=== PATIENT | female | born 1945 | race Caucasian/White ===

== ENCOUNTER 2017-09-08 18:06 | Observation (INO) | payer BC, OTHER ==
[~2017-09-08 18:06] MED LIST: CADU5TAB2 PO; FLUO20TA20 PO; MIAC200S; OMEP20TA PO; [UNRECOGNIZED DRUG - OTHER] PO
[2017-09-08] MEDS ORDERED: IOHEXOL 350 MG/ML 10 ML VIAL (for RAD DIAG) IVCONTRAST ONE (18:07)
[2017-09-08 18:13] VITALS: BP 154/96; PULSE 124; RESP 20; TEMP 98.1; O2SAT 94
[2017-09-08] MEDS ORDERED: FLUO-1 PO (18:24)
[2017-09-08] MEDS ORDERED: CHOLESTEROL PILL (18:24)
[2017-09-08] MEDS ORDERED: BLOOD PRESSURE PILL (18:24)
[2017-09-08 18:28] VITALS: BP 126/73; PULSE 86; RESP 19; O2SAT 99
[2017-09-08] MEDS ORDERED: KETOROLAC TROMETHAMINE 30 MG/ML (IVP) VIAL IV PUSH ONE (18:30)
[2017-09-08] MEDS ORDERED: SODIUM CHLORIDE 0.9% FLUSH 10 ML FLUSH IVF PRN (18:30)
[2017-09-08] MEDS ORDERED: ASPIRIN 81 MG CHEW TAB PO ONE (18:30)
--- NOTE | 2017-09-08 18:31 | PD ---
HPI Chief Complaint: Chest Pain Time Seen by Provider: 18:17 Travel History International Travel<30 days: No Contact w/Intl Traveler<30days: No Traveled to known affect area: No History of Present Illness HPI 72-year-old female presents to the emergency department for evaluation of right- sided chest pain that occurred just prior to arrival. Patient states she was walking around when she started with a sharp, intermittent right-sided chest pain that is worse with deep breathing, movement. Patient states this sharp and stabbing in nature without radiation. She denies any heavy lifting or heavy exercise. She denies any history of similar pain in the past. No fevers or chills. She states she had an associated cough with it. She denies any left -sided chest pain. No abdominal pain. No alleviating factors. Moderate severity. PFSH Past Medical History Arthritis: No Asthma: No Autoimmune Disease: No Blood Disorders: No Anxiety: Yes Depression: Yes Heart Rhythm Problems: No Cancer: No Cardiovascular Problems: Yes High Cholesterol: No Chemotherapy: No Chest Pain: No Congestive Heart Failure: No COPD: No Cerebrovascular Accident: No Diabetes: No Endocrine: No Gastrointestinal Disorders: Yes (HEMORRHOIDECTOMY THIS LAST WEEK) GERD: Yes Glaucoma: No Genitourinary: No Headaches: No Hepatitis: No Hiatal Hernia: Yes Hypertension: Yes Immune Disorder: No Kidney Stones: No Musculoskeletal: Yes Neurologic: Yes Psychiatric: Yes Reproductive: No Respiratory: No Myocardial Infarction: No Radiation Therapy: No Renal Failure: No Seizures: No Sickle Cell Disease: No Sleep Apnea: No Thyroid Disease: No Ulcer: Yes Tetanus Vaccination: Unknown Influenza Vaccination: No ?: Not Menopausal: Yes Past Surgical History Abdominal Surgery: Yes (APPENDECTOMY) AICD: No Cardiac Surgery: No Ear Surgery: No Endocrine Surgery: No Eye Surgery: No Genitourinary Surgery: No Gynecologic Surgery: Yes (TUBAL LIGATION, HYSTEROSCOPY) Oral Surgery: No Pacemaker: No Thoracic Surgery: No Other Surgery: Yes Social History Alcohol Use: Yes (FEW GLASSES WINE EVERY MONTH) Tobacco Use: No Substance Use: No Allergies-Medications (Allergen,Severity, Reaction): Coded Allergies: hydromorphone (Unverified Allergy, Mild, COMATOSE, 09/08/17) Reported Meds & Prescriptions Reported Meds & Active Scripts Active Reported [Cholesterol Pill] [Blood Pressure Pill] Prozac (Fluoxetine HCl) 10 Mg Cap 10 Mg PO DAILY Review of Systems Except as stated in HPI: all other systems reviewed are Neg Physical Exam Narrative GENERAL: Well-nourished, well-developed female patient, afebrile. SKIN: Focused skin assessment warm/dry. HEAD: Normocephalic. Atraumatic. EYES: No scleral icterus. No injection or drainage. NECK: Supple, trachea midline. No JVD or lymphadenopathy. CARDIOVASCULAR: Regular rate and rhythm without murmurs, gallops, or rubs. Bilateral radial and pedal pulses are 2+. RESPIRATORY: Breath sounds equal bilaterally. No accessory muscle use. Lungs sounds are clear to auscultation. GASTROINTESTINAL: Abdomen soft, non-tender, nondistended. No abdominal pain to palpation. MUSCULOSKELETAL: No cyanosis, or edema. Right lower chest pain is reproducible with palpation. BACK: Nontender without obvious deformity. No CVA tenderness. Data Data Last Documented VS Vital Signs Date Time Temp Pulse Resp B/P (MAP) Pulse Ox O2 Delivery O2 Flow Rate FiO2 09/08/17 19:18 96 09/08/17 19:18 16 123/81 (95) 99 09/08/17 18:34 Nasal Cannula 2.00 09/08/17 18:13 98.1 Orders Orders Electrocardiogram (09/08/17 18:26) Ckmb (Isoenzyme) Profile (09/08/17 18:26) Complete Blood Count With Diff (09/08/17 18:26) D-Dimer (09/08/17 18:26) Magnesium (Mg) (09/08/17 18:26) Prothrombin Time / Inr (Pt) (09/08/17 18:26) Act Partial Throm Time (Ptt) (09/08/17 18:26) Troponin I (09/08/17 18:26) Chest, Single Ap (09/08/17 18:26) Ecg Monitoring (09/08/17 18:26) Bilateral Bp Monitoring (09/08/17 18:26) Iv Access Insert/Monitor (09/08/17 18:26) Oximetry (09/08/17 18:26) Oxygen Administration (09/08/17 18:26) Aspirin Chew (Aspirin Chew) (09/08/17 18:30) Sodium Chloride 0.9% Flush (Ns Flush) (09/08/17 18:30) Ketorolac Inj (Toradol Inj) (09/08/17 18:30) Comprehensive Metabolic Panel (09/08/17 18:35) Lipase (09/08/17 18:35) CKMB (09/08/17 18:35) CKMB% (09/08/17 18:35) Ct Pulmonary Angiogram (09/08/17 ) Iohexol 350 Inj (Omnipaque 350 Inj) (09/08/17 18:07) Admit Order (Ed Use Only) (09/08/17 21:12) Labs Laboratory Tests Test 09/08/17 18:35 White Blood Count 6.9 TH/MM3 Red Blood Count 4.59 MIL/MM3 Hemoglobin 14.8 GM/DL Hematocrit 43.0 % Mean Corpuscular Volume 93.7 FL Mean Corpuscular Hemoglobin 32.2 PG Mean Corpuscular Hemoglobin Concent 34.4 % Red Cell Distribution Width 13.4 % Platelet Count 273 TH/MM3 Mean Platelet Volume 7.3 FL Neutrophils (%) (Auto) 60.6 % Lymphocytes (%) (Auto) 25.5 % Monocytes (%) (Auto) 10.8 % Eosinophils (%) (Auto) 2.6 % Basophils (%) (Auto) 0.5 % Neutrophils # (Auto) 4.2 TH/MM3 Lymphocytes # (Auto) 1.8 TH/MM3 Monocytes # (Auto) 0.7 TH/MM3 Eosinophils # (Auto) 0.2 TH/MM3 Basophils # (Auto) 0.0 TH/MM3 CBC Comment DIFF FINAL Differential Comment Prothrombin Time 10.0 SEC Prothromb Time International Ratio 1.0 RATIO Activated Partial Thromboplast Time 24.4 SEC D-Dimer Quantitative (PE/DVT) 1.37 MG/L FEU Blood Urea Nitrogen 21 MG/DL Creatinine 0.95 MG/DL Random Glucose 100 MG/DL Total Protein 7.7 GM/DL Albumin 3.9 GM/DL Calcium Level 8.9 MG/DL Magnesium Level 2.1 MG/DL Alkaline Phosphatase 118 U/L Aspartate Amino Transf (AST/SGOT) 26 U/L Alanine Aminotransferase (ALT/SGPT) 29 U/L Total Bilirubin 0.3 MG/DL Sodium Level 139 MEQ/L Potassium Level 4.3 MEQ/L Chloride Level 104 MEQ/L Carbon Dioxide Level 28.1 MEQ/L Anion Gap 7 MEQ/L Estimat Glomerular Filtration Rate 58 ML/MIN Total Creatine Kinase 101 U/L Creatine Kinase MB 1.5 NG/ML Troponin I LESS THAN 0.02 NG/ML Lipase 66 U/L MDM Medical Decision Making Medical Screen Exam Complete: Yes Emergency Medical Condition: Yes Medical Record Reviewed: Yes Interpretation(s) Last Impressions Chest X-Ray 09/08/17 1826 Signed Impressions: Service Date/Time: Friday, September 08, 2017 18:53 - CONCLUSION: The lungs are clear. Ankit Alicia MD CT Angiography 09/08/17 0000 Signed Impressions: Service Date/Time: Friday, September 08, 2017 19:59 - CONCLUSION: 1. The study is negative for pulmonary embolism. 2. Bilateral symmetric areas of scarring or atelectasis in the lower lungs. 3. Hiatus hernia. Ankit Alicia MD Differential Diagnosis Musculoskeletal strain versus pneumothorax versus pneumonia versus PE versus ACS Narrative Course 72-year-old female presents to the emergency department for evaluation of right- sided chest pain that started just prior to arrival. EKG shows sinus rhythm, heart rate 91, no acute ST changes. CBC, CMP, lipase, CK, troponin, magnesium, PTT, PT/INR, d-dimer are ordered and pending. Chest x-ray is ordered and pending. Patient is given aspirin 162 mg by mouth and Toradol 30 mg IV. CBC shows no acute abnormality. CMP shows no acute abnormality. Lipase is 66. CK is 101. Troponin is less than 0.02. Magnesium is 2.1. Coags are unremarkable. D-dimer is 1.37. Chest x-ray shows the lungs are clear. CT pulmonary angiogram is ordered and pending which shows no evidence of PE. I spoke with attending physician, Dr. Draper, who also examined patient. We were going to discharge the patient home as this appears to be musculoskeletal, the patient requests to be admitted for further evaluation convinced that she is having a heart attack. Patient does have risk factors and will be admitted to the chest pain center for further evaluation. My attending physician agrees. Diagnosis Primary Impression: Chest pain Qualified Codes: R07.9 - Chest pain, unspecified Admitting Information Admitting Physician Requests: Observation Sara Andrade Sep 08, 2017 18:31
[2017-09-08 18:34] VITALS: BP_SYST 126; BP_SYST 154; BP_DIAS 73; BP_DIAS 96; O2SAT 99
[2017-09-08 18:57] LABS: AUTOMATED NEUTROPHIL # 4.2 TH/MM3 (1.8-7.7); BASOPHIL % 0.5 % (0.0-2.0); EOSINOPHIL # 0.2 TH/MM3 (0-0.4); EOSINOPHIL % 2.6 % (0.0-4.0); HEMOGLOBIN 14.8 GM/DL (11.6-15.3); LYMPH % 25.5 % (9.0-44.0); LYMPHOCYTE # 1.8 TH/MM3 (1.0-4.8); MEAN CELL VOLUME 93.7 FL (80.0-100.0); MEAN CORPUSCULAR HEMOGLOBIN 32.2 PG (27.0-34.0); MEAN CORPUSCULAR HGB CONC 34.4 % (32.0-36.0); MEAN PLATELET VOLUME 7.3 FL (7.0-11.0); MONO % 10.8 % (0.0-8.0); MONOCYTE # 0.7 TH/MM3 (0-0.9); NEUT % 60.6 % (16.0-70.0); PLATELET COUNT 273 TH/MM3 (150-450); RED BLOOD COUNT 4.59 MIL/MM3 (4.00-5.30); RED CELL DISTRIBUTION WIDTH 13.4 % (11.6-17.2); WHITE BLOOD COUNT 6.9 TH/MM3 (4.0-11.0)
--- NOTE | 2017-09-08 19:14 | RADRPT ---
EXAM DATE/TIME: 09/08/2017 18:53 [facility] COMPARISON: No previous studies available for comparison. INDICATIONS : Patient complains of right sided chest pain. MEDICAL HISTORY : None. SURGICAL HISTORY : None. ENCOUNTER: Initial ACUITY: 1 day PAIN SCORE: 8/10 LOCATION: Right chest FINDINGS: A single view of the chest demonstrates the lungs to be symmetrically aerated without evidence of mas s, infiltrate or effusion. The cardiomediastinal contours are unremarkable. Osseous structures are intact. CONCLUSION: The lungs are clear. Ankit Alicia MD on September 08, 2017 at 19:12 Board Certified Radiologist. This report was verified electronically.
[2017-09-08 19:17] LABS: D-DIMER 1.37 MG/L FEU (0.00-0.50)
[2017-09-08 19:18] VITALS: BP 123/81; PULSE 79; RESP 16; O2SAT 99
[2017-09-08 19:20] LABS: ALKALINE PHOSPHATASE 118 U/L (45-117); TOTAL BILIRUBIN ADULT 0.3 MG/DL (0.2-1.0); TOTAL PROTEIN 7.7 GM/DL (6.4-8.2); TROPONIN I LESS THAN 0.02 NG/ML (0.02-0.05)
[2017-09-08 19:27] LABS: ALBUMIN 3.9 GM/DL (3.4-5.0); AST (GOT) 26 U/L (15-37); BICARBONATE 28.1 MEQ/L (21.0-32.0); BLOOD UREA NITROGEN 21 MG/DL (7-18); CALCIUM 8.9 MG/DL (8.5-10.1); CHLORIDE 104 MEQ/L (98-107); CREATININE 0.95 MG/DL (0.50-1.00); GLOMERULAR FILTRATION RATE 58 ML/MIN (>89); GLUCOSE,RANDOM 100 MG/DL (74-106); MAGNESIUM 2.1 MG/DL (1.5-2.5); SODIUM (NA) 139 MEQ/L (136-145)
[2017-09-08 19:30] LABS: ALT (GPT) 29 U/L (10-53)
--- NOTE | 2017-09-08 20:14 | RADRPT ---
EXAM DATE/TIME: 09/08/2017 19:59 [facility] COMPARISON: No previous studies available for comparison. INDICATIONS : Chest pain and short of breath. IV CONTRAST: 73 cc Omnipaque 350 (iohexol) IV RADIATION DOSE: 14.01 CTDIvol (mGy) MEDICAL HISTORY : Hypertension. SURGICAL HISTORY : Tubal ligation. ENCOUNTER: Initial ACUITY: 1 day PAIN SCALE: 9/10 LOCATION: chest TECHNIQUE: Volumetric scanning of the chest was performed using a pulmonary embolism protocol MIP images were re constructed. Using automated exposure control and adjustment of the mA and/or kV according to patien t size, radiation dose was kept as low as reasonably achievable to obtain optimal diagnostic quality images. DICOM format image data is available electronically for review and comparison. Follow-up recommendations for detected pulmonary nodules are based at a minimum on nodule size and pa tient risk factors according to Fleischner Society Guidelines. FINDINGS: PULMONARY ARTERIES: No filling defects are seen in the pulmonary arteries through the segmental level. LUNGS: In the posterior lower lungs bilaterally, there are thickened areas of opacity without air bronchogra ms having a configurations suggesting scarring or atelectasis. No infiltrates or nodules seen in the mid or upper lungs. PLEURAE: There is no pleural thickening or pleural effusion. MEDIASTINUM: There is good visualization of the great vessels of the middle mediastinum. No evidence of mediastin al or hilar adenopathy/mass post moderate size hiatus hernia measuring 4.6 cm.. CONCLUSION: 1. The study is negative for pulmonary embolism. 2. Bilateral symmetric areas of scarring or atelectasis in the lower lungs. 3. Hiatus hernia. Ankit Alicia MD on September 08, 2017 at 20:11 Board Certified Radiologist. This report was verified electronically.
[2017-09-08] MEDS ORDERED: SODIUM CHLORIDE 0.9% FLUSH 10 ML FLUSH IV FLUSH PRN (21:15)
--- NOTE | 2017-09-08 21:53 | PD ---
Physical Exam Date Seen by Provider: Sep 08, 2017 Time Seen by Provider: 20:50 Narrative GENERAL: Well-developed well-nourished female no acute distress no respiratory distress SKIN: Warm and dry. NECK: Supple, trachea midline. No JVD or lymphadenopathy. CARDIOVASCULAR: Regular rate and rhythm without murmurs, gallops, or rubs. Chest wall: Reproducible right anterior lower chest wall tenderness to palpation RESPIRATORY: Breath sounds equal bilaterally. No accessory muscle use. GASTROINTESTINAL: Abdomen soft, non-tender, nondistended. MUSCULOSKELETAL: No cyanosis, or edema. Data Data Last Documented VS Vital Signs Date Time Temp Pulse Resp B/P (MAP) Pulse Ox O2 Delivery O2 Flow Rate FiO2 09/08/17 19:18 96 09/08/17 19:18 16 123/81 (95) 99 09/08/17 18:34 Nasal Cannula 2.00 09/08/17 18:13 98.1 Orders Orders Electrocardiogram (09/08/17 18:26) Ckmb (Isoenzyme) Profile (09/08/17 18:26) Complete Blood Count With Diff (09/08/17 18:) D-Dimer (09/08/17 18:) Magnesium (Mg) (09/08/17 18:26) Prothrombin Time / Inr (Pt) (09/08/17 18:26) Act Partial Throm Time (Ptt) (09/08/17 18:26) Troponin I (09/08/17 18:26) Chest, Single Ap (09/08/17 18:26) Ecg Monitoring (09/08/17 18:26) Bilateral Bp Monitoring (09/08/17 18:26) Iv Access Insert/Monitor (09/08/17 18:) Oximetry (09/08/17 18:26) Oxygen Administration (09/08/17 18:26) Aspirin Chew (Aspirin Chew) (09/08/17 18:30) Sodium Chloride 0.9% Flush (Ns Flush) (09/08/17 18:30) Ketorolac Inj (Toradol Inj) (09/08/17 18:30) Comprehensive Metabolic Panel (09/08/17 18:35) Lipase (09/08/17 18:35) CKMB (09/08/17 18:35) CKMB% (09/08/17 18:35) Ct Pulmonary Angiogram (09/08/17 ) Iohexol 350 Inj (Omnipaque 350 Inj) (09/08/17 18:07) Admit Order (Ed Use Only) (09/08/17 21:12) Labs Laboratory Tests Test 09/08/17 18:35 White Blood Count 6.9 TH/MM3 Red Blood Count 4.59 MIL/MM3 Hemoglobin 14.8 GM/DL Hematocrit 43.0 % Mean Corpuscular Volume 93.7 FL Mean Corpuscular Hemoglobin 32.2 PG Mean Corpuscular Hemoglobin Concent 34.4 % Red Cell Distribution Width 13.4 % Platelet Count 273 TH/MM3 Mean Platelet Volume 7.3 FL Neutrophils (%) (Auto) 60.6 % Lymphocytes (%) (Auto) 25.5 % Monocytes (%) (Auto) 10.8 % Eosinophils (%) (Auto) 2.6 % Basophils (%) (Auto) 0.5 % Neutrophils # (Auto) 4.2 TH/MM3 Lymphocytes # (Auto) 1.8 TH/MM3 Monocytes # (Auto) 0.7 TH/MM3 Eosinophils # (Auto) 0.2 TH/MM3 Basophils # (Auto) 0.0 TH/MM3 CBC Comment DIFF FINAL Differential Comment Prothrombin Time 10.0 SEC Prothromb Time International Ratio 1.0 RATIO Activated Partial Thromboplast Time 24.4 SEC D-Dimer Quantitative (PE/DVT) 1.37 MG/L FEU Blood Urea Nitrogen 21 MG/DL Creatinine 0.95 MG/DL Random Glucose 100 MG/DL Total Protein 7.7 GM/DL Albumin 3.9 GM/DL Calcium Level 8.9 MG/DL Magnesium Level 2.1 MG/DL Alkaline Phosphatase 118 U/L Aspartate Amino Transf (AST/SGOT) 26 U/L Alanine Aminotransferase (ALT/SGPT) 29 U/L Total Bilirubin 0.3 MG/DL Sodium Level 139 MEQ/L Potassium Level 4.3 MEQ/L Chloride Level 104 MEQ/L Carbon Dioxide Level 28.1 MEQ/L Anion Gap 7 MEQ/L Estimat Glomerular Filtration Rate 58 ML/MIN Total Creatine Kinase 101 U/L Creatine Kinase MB 1.5 NG/ML Troponin I LESS THAN 0.02 NG/ML Lipase 66 U/L [facility] Medical Record Reviewed: Yes Supervised Visit with RYANN: Yes Differential Diagnosis Chest pain, atypical chest pain, ACS, NV, musculoskeletal pain, pleurisy, costochondritis, occult rib fracture, pneumonia, cholecystitis, PE Narrative Course Patient presents with complaint of 2 hours of intermittent stabbing right-sided chest pain and midsternal pain without associated shortness of breath sweats nausea vomiting near syncope syncope or referred neck jaw back shoulder arm pain. Patient denies abdominal pain. Patient has history of hypertension and dyslipidemia. Symptoms began while performing minimal exertion. Pain was present for seconds at a time and resolve spontaneously. No prior history of cardiac disease or cardiac evaluation. Patient was appropriately evaluated and assessed by nurse practitioner and I agree with assessment and plan. Patient underwent cardiac monitoring with continuous pulse oximetry IV access obtained specimens collections of resulting EKG was performed which revealed no acute injury pattern or ectopy advisor found to be grossly within normal range except for elevated d-dimer which was addressed with CT pulmonary angiogram which was negative for PE or acute process. Findings have been discussed in detail with the patient with spouse at bedside patient is concerned that she may have cardiac disease therefore with risk factor being female over the age of 50 with hypertension dyslipidemia and family history of heart disease although not premature onset patient will be admitted for observation to chest pain center per protocol. Physician Communication Physician Communication [facility] Diagnosis Primary Impression: Chest pain Qualified Codes: R07.9 - Chest pain, unspecified Admitting Information Admitting Physician Requests: Observation Christina Draper MD Sep 08, 2017 21:53
[2017-09-08 22:12] VITALS: BP 132/73; PULSE 84; RESP 15; TEMP 98; O2SAT 94
[2017-09-08 23:24] LABS: TROPONIN I LESS THAN 0.02 NG/ML (0.02-0.05)
[2017-09-09] VITALS (7 sets, daily range): BP systolic 97–125; BP diastolic 56–78; PULSE 74–82; RESP 15–18; TEMP 98–98.3; O2SAT 94–95
[2017-09-09 02:25] LABS: TROPONIN I LESS THAN 0.02 NG/ML (0.02-0.05)
--- NOTE | 2017-09-09 07:42 | HHI.HP ---
HPI Primary Care Physician Luke Renteria MD Chief Complaint Chest pain History of Present Illness 72 year old female with history of depression, hypertension, and hyperlipidemia presents to ER for further evaluation of chest pain. Onset yesterday afternoon. Location right inframammary area. Characterized as sharp. Hurts to take a deep breath. No radiation of pain. Duration constant, continues to report "mild soreness." Hurt to take a deep breath. No associated symptoms of nausea, vomiting, diaphoreses, or dyspnea. No precipitating. Relieving factors Toradol given in ER helped reduce the severity of discomfort. Review of Systems General: No fatigue,weakness, fever, chills, recent illness, or change in appetite. Has been in her general state of health. HEENT: No DUTTON, no vision changes, no nasal congestion or drainage, no dysphasia CV: As stated above. Continues to have right-sided chest pain, made worse with palpation. No palpitations, intermittent leg pain, dizziness RESP: No SOB, cough, wheeze, recent URI GI: No nausea, vomiting, bowel changes, diarrhea, constipation, pain, distention , melena, blood in the stool. No change in appetite, no unintentional weight gain or weight loss : No dysuria, urgency, frequency EXT: No lower leg edema, no paraesthesias MS: No discomfort, recent injury, trauma, or change in ROM NEURO: No difficulty with balance, LOC, motor/sensory deficits PSYCH: History of depression, reporting controlled prozac daily. SKIN: No rashes, no concerning lesions Past Family Social History Allergies: Coded Allergies: hydromorphone (Unverified Allergy, Mild, COMATOSE, 09/08/17) Past Medical History Hyperlipidemia, hypertension, depression Reported Medications Reported Meds & Active Scripts Active Reported [Cholesterol Pill] [Blood Pressure Pill] Prozac (Fluoxetine HCl) 10 Mg Cap 10 Mg PO DAILY Active Ordered Medications Current Medications Medications (Trade) Dose Ordered Sig/Kay Route Start Time Stop Time Status Last Admin (NS Flush) 2 ml UNSCH PRN IVF 09/08/17 18:30 (NS Flush) 2 ml UNSCH PRN IV FLUSH 09/08/17 21:15 Social History Known hypertension and hyperlipidemia. No known coronary artery disease or diabetes. Lifelong nonsmoker. Denies any alcohol. Endorses an active lifestyle. . Retired. Past cardiac testing No recent cardiac testing. Physical Exam Vital Signs Vital Signs Date Time Temp Pulse Resp B/P (MAP) Pulse Ox O2 Delivery O2 Flow Rate FiO2 09/09/17 04:35 98.0 78 15 106/67 (80) 95 09/09/17 04:06 77 09/09/17 01:20 Nasal Cannula 2.00 09/09/17 00:54 81 09/09/17 00:38 98.3 82 16 97/56 (70) 94 09/08/17 22:12 98.0 84 15 132/73 (92) 94 09/08/17 22:00 09/08/17 19:18 96 09/08/17 19:18 79 16 123/81 (95) 99 09/08/17 18:34 154/96 (115) 126/73 (90) 09/08/17 18:34 99 09/08/17 18:34 Nasal Cannula 2.00 09/08/17 18:28 86 19 126/73 (90) 99 Nasal Cannula 2.00 09/08/17 18:13 98.1 124 20 154/96 (115) 94 Physical Exam GENERAL: Alert WN, WD, NAD, pleasant, female HEAD: NC, AT EYES: Sclera clear, conjunctiva without injection ENT: Mucous membranes pink and moist NECK: Supple, no masses, trachea midline CV: RRR, without murmur, rub, gallop, no JVD, S1-S2 no S3-S4. Right sided chest pain easily reproduced with light palpation. RESP: Clear lungs throughout bilateral, no crackles, wheeze, rhonchi, symmetrical chest rise, nonlabored, able to speak in full sentences ABD: Soft, NT, ND, no masses, positive bowel tones EXT: Pulses +24, no dependent edema MS: Normal tone 4 extremities, nontender, no obvious deformities, full range of motion NEURO: CN II through CN XII grossly intact, motor strength 5/5, gait WNL PSYCH: A+O 3, pleasant affect, appropriate speech, mood, insight and judgment SKIN: Normal turgor, normal texture, no lesions, no rashes Laboratory Laboratory Tests Test 09/08/17 18:35 09/08/17 22:50 09/09/17 01:50 White Blood Count 6.9 Red Blood Count 4.59 Hemoglobin 14.8 Hematocrit 43.0 Mean Corpuscular Volume 93.7 Mean Corpuscular Hemoglobin 32.2 Mean Corpuscular Hemoglobin Concent 34.4 Red Cell Distribution Width 13.4 Platelet Count 273 Mean Platelet Volume 7.3 Neutrophils (%) (Auto) 60.6 Lymphocytes (%) (Auto) 25.5 Monocytes (%) (Auto) 10.8 Eosinophils (%) (Auto) 2.6 Basophils (%) (Auto) 0.5 Neutrophils # (Auto) 4.2 Lymphocytes # (Auto) 1.8 Monocytes # (Auto) 0.7 Eosinophils # (Auto) 0.2 Basophils # (Auto) 0.0 CBC Comment DIFF FINAL Differential Comment Prothrombin Time 10.0 Prothromb Time International Ratio 1.0 Activated Partial Thromboplast Time 24.4 D-Dimer Quantitative (PE/DVT) 1.37 Blood Urea Nitrogen 21 Creatinine 0.95 Random Glucose 100 Total Protein 7.7 Albumin 3.9 Calcium Level 8.9 Magnesium Level 2.1 Alkaline Phosphatase 118 Aspartate Amino Transf (AST/SGOT) 26 Alanine Aminotransferase (ALT/SGPT) 29 Total Bilirubin 0.3 Sodium Level 139 Potassium Level 4.3 Chloride Level 104 Carbon Dioxide Level 28.1 Anion Gap 7 Estimat Glomerular Filtration Rate 58 Total Creatine Kinase 101 71 66 Creatine Kinase MB 1.5 Troponin I LESS THAN 0.02 LESS THAN 0.02 LESS THAN 0.02 Lipase 66 Result Diagram: 09/08/17 1835 09/08/17 1835 Imaging Last 48 hours Impressions Chest X-Ray 09/08/17 1826 Signed Impressions: Service Date/Time: Friday, September 08, 2017 18:53 - CONCLUSION: The lungs are clear. Ankit Alicia MD CT Angiography 09/08/17 0000 Signed Impressions: Service Date/Time: Friday, September 08, 2017 19:59 - CONCLUSION: 1. The study is negative for pulmonary embolism. 2. Bilateral symmetric areas of scarring or atelectasis in the lower lungs. 3. Hiatus hernia. Ankit Alicia MD Course EKG Sinus rhythm, normal axis, no ST segment changes Caprini VTE Risk Assessment Caprini VTE Risk Assessment: Mod/High Risk (score >= 2) Caprini Risk Assessment Model Point Value = 1 Point Value = 2 Point Value = 3 Point Value = 5 Age 41-60 Minor surgery BMI > 25 kg/m2 Swollen legs Varicose veins or History of unexplained or recurrent spontaneous Oral contraceptives or hormone replacement Sepsis (< 1 month) Serious lung disease, including pneumonia (< 1 month) Abnormal pulmonary function Acute myocardial infarction Congestive heart failure (< 1 month) History of inflammatory bowel disease Medical patient at bed rest Age 61-74 Arthroscopic surgery Major open surgery (> 45 min) Laparoscopic surgery (> 45 min) Malignancy Confined to bed (> 72 hours) Immobilizing plaster cast Central venous access Age >= 75 History of VTE Family history of VTE Factor V Leiden Prothrombin [id number] Lupus anticoagulant Anticardiolipin antibodies Elevated serum homocysteine Heparin-induced thrombocytopenia Other congenital or acquired thrombophilia Stroke (< 1 month) Elective arthroplasty Hip, pelvis, or leg fracture Acute spinal cord injury (< 1 month) Prophylaxis Regimen Total Risk Factor Score Risk Level Prophylaxis Regimen 0-1 Low Early ambulation 2 Moderate Order ONE of the following: *Sequential Compression Device (SCD) *Heparin 5000 units SQ BID 3-4 Higher Order ONE of the following medications: *Heparin 5000 units SQ TID *Enoxaparin/Lovenox 40 mg SQ daily (WT < 150 kg, CrCl > 30 mL/min) *Enoxaparin/Lovenox 30 mg SQ daily (WT < 150 kg, CrCl > 10-29 mL/min) *Enoxaparin/Lovenox 30 mg SQ BID (WT < 150 kg, CrCl > 30 mL/min) AND/OR *Sequential Compression Device (SCD) 5 or more Highest Order ONE of the following medications: *Heparin 5000 units SQ TID (Preferred with Epidurals) *Enoxaparin/Lovenox 40 mg SQ daily (WT < 150 kg, CrCl > 30 mL/min) *Enoxaparin/Lovenox 30 mg SQ daily (WT < 150 kg, CrCl > 10-29 mL/min) *Enoxaparin/Lovenox 30 mg SQ BID (WT < 150 kg, CrCl > 30 mL/min) AND *Sequential Compression Device (SCD) Assessment and Plan Assessment and Plan #1 Atypical chest pain-admitted chest pain center. Ruled out with 3 sets of EKGs, cardiac enzymes, and monitored to monitor overnight. Seen and evaluated by Dr. Gorge Serna. Proceed with exercise stress test this a.m. If unremarkable plans to discharge home with follow-up with PCP. Discomfort most likely musculoskeletal in nature. Toradol 30 mg tab 1 dose IV. Patient agreeable to plan of care. Rowena Doyle Sep 09, 2017 07:42
[2017-09-09] MEDS ORDERED: NITROGLYCERIN 0.4 MG SL 25 TABS/BTL SL PRN (07:45)
[2017-09-09] MEDS ORDERED: ONDANSETRON HCL 4 MG/2 ML VIAL IV PUSH PRN (07:45)
[2017-09-09] MEDS ORDERED: ACETAMINOPHEN 500 MG CPLT PO PRN (07:45)
[2017-09-09] MEDS ORDERED: KETOROLAC TROMETHAMINE 30 MG/ML (IVP) VIAL IV PUSH ONE (08:45)
[2017-09-09] MEDS ORDERED: ASPIRIN 325 MG TAB PO SCH (09:00)
[2017-09-09] MEDS ORDERED: FLUoxetine HCL 10 MG CAP PO SCH (09:00)
--- NOTE | 2017-09-09 11:45 | HHI.DCPOC ---
Discharge Care Plan Diagnosis: (1) Musculoskeletal chest pain Goals to Promote Your Health * To prevent worsening of your condition and complications * To maintain your health at the optimal level Directions to Meet Your Goals Take your medications as prescribed Follow your dietary instruction Follow activity as directed Keep your appointments as scheduled Take your immunizations and boosters as scheduled If your symptoms worsen call your PCP, if no PCP go to Urgent Care Center or Emergency Room Smoking is Dangerous to Your Health. Avoid second hand smoke Call the 24-hour hour crisis hotline for domestic abuse at Rowena Doyle Sep 09, 2017 11:45
--- NOTE | 2017-09-10 08:46 | EKG ---
Date Performed: 09/09/2017 Time Performed: 02:39:44 PTAGE: 72 years EKG: Sinus rhythm NORMAL ECG PREVIOUS TRACING : 09/08/2017 22.19 Since previous tracing, no significant change noted DOCTOR: Gorge Serna Interpretating Date/Time 09/10/2017 08:44:40
--- NOTE | 2017-09-10 08:47 | EKG ---
Date Performed: 09/08/2017 Time Performed: 22:19:36 PTAGE: 72 years EKG: Sinus rhythm BORDERLINE ECG PREVIOUS TRACING : 09/08/2017 18.23 Since previous tracing, no significant change noted DOCTOR: Gorge Serna Interpretating Date/Time 09/10/2017 08:45:49
--- NOTE | 2017-09-10 08:48 | EKG ---
Date Performed: 09/08/2017 Time Performed: 18:23:12 PTAGE: 72 years EKG: Sinus rhythm NORMAL ECG PREVIOUS TRACING : 08/24/2008 12.38 Since previous tracing, no significant change noted DOCTOR: Gorge Serna Interpretating Date/Time 09/10/2017 08:46:50
--- NOTE | 2017-09-10 08:57 | TR ---
Date Performed: 09/09/2017 Time Performed: 10:35:55 DOCTOR: Gorge Serna DRUG LIST: CLINICAL HISTORY: REASON FOR TEST: REASON FOR ENDING: OBSERVATION: CONCLUSION: Zacarias protocol completed. Stopped sec to leg fatigue and exceeding target heart rate . Target HR Achieved=99.0% Maximum FO=457/80 Total Exercise Time=3:01 Maximum CS=951. No reprod chest discomfort. No ectopy. No st t segment changes, nondiagnostic. Normal bp response. Exericse toleranc e fair. Recovery quick and unremarkable. COMMENTS: Patient exercised using the Zacarias protocol. No electrocardiographic changes were seen to suggest ischemia. Hemodynamic response to exercise was normal. No significant arrhythmia was prese nt.
== END 2017-09-09 13:02 | disposition home or self-care (01) ==
LOC: NEPC 18:06 → NEDA 21:14 → NEPFCDU 21:53
PROVIDERS: ADMIT Internal Medicine Cardiovascular Disease; ATTEND Internal Medicine Cardiovascular Disease
DX: R07.89 Other chest pain (principal); I10 Essential (primary) hypertension; E78.5 Hyperlipidemia, unspecified; K44.9 Diaphragmatic hernia without obstruction or gangrene; F32.9 Major depressive disorder, single episode, unspecified; F41.9 Anxiety disorder, unspecified; Z79.899 Other long term (current) drug therapy; Z82.49 Family history of ischemic heart disease and other diseases of the circulatory system
CPT/HCPCS: 71045; 71275; 80053; 82550; 82552; 83690; 83735; 84484; 85025; 85379; 85610; 85730; 93005; 93017; 96374; 96376; 99285; G0378; J1885; Q9967